=== PATIENT | male | born 1940 | race African-American/Black ===

== ENCOUNTER 2018-03-10 05:05 | Inpatient (IN) ==
[2018-03-13 11:18] VITALS: BP 154/73
== END 2018-03-13 11:55 | disposition swing bed (61) | DRG 470 ==
LOC: N.OR 05:05 → N.SDSINP 05:11 → N.3E 07:10
PROVIDERS: ADMIT Orthopaedic Surgery; ATTEND Orthopaedic Surgery

== ENCOUNTER 2018-06-10 05:32 | Inpatient (IN) ==
[2018-06-10] MEDS ORDERED: VANCOMYCIN INJ 1,000 MG in SODIUM CHLORIDE 0.9% 250 ML IV ONE (06:00)
[2018-06-10] MEDS ORDERED: ceFAZolin 1,000 MG in SYRINGE 1 EACH IV ONE (06:00)
[2018-06-10] MEDS ORDERED: ALBUTEROL/IPRATROPIUM 3 ML NEB RESP TX ONE (06:54)
[2018-06-10] MEDS ORDERED: DIAZEPAM 5 MG TABLET PO ONE (06:54)
[2018-06-10] MEDS ORDERED: FAMOTIDINE 20 MG TABLET PO ONE (06:54)
[2018-06-10] MEDS ORDERED: ROPIVACAINE 0.5% 30 ML VIAL ONE (06:58)
[2018-06-10] MEDS ORDERED: VANCOMYCIN 1,000 MG VIAL ONE ×2 (07:11→07:20)
[2018-06-10] MEDS ORDERED: ceFAZolin 1,000 MG VIAL ONE (07:11)
[2018-06-10] MEDS ORDERED: FAMOTIDINE 20 MG TABLET ONE (07:12)
[2018-06-10] MEDS ORDERED: DIAZEPAM 5 MG TABLET ONE (07:12)
[2018-06-10] MEDS ORDERED: MORPHINE 4 MG/1 ML VIAL IV PRN (07:16)
[2018-06-10] MEDS ORDERED: diphenhydrAMINE CAP 25 MG CAPSULE PO PRN (07:16)
[2018-06-10] MEDS ORDERED: ONDANSETRON 4 MG/2 ML VIAL IV PRN (07:16)
[2018-06-10] MEDS ORDERED: NALOXONE 0.4 MG/ML VIAL IV PRN (07:16)
[2018-06-10] MEDS ORDERED: BISACODYL 10 MG SUPP RECTAL PRN (07:16)
[2018-06-10] MEDS ORDERED: LACTULOSE 20 GM/30 ML UDCUP PO PRN (07:16)
[2018-06-10] MEDS ORDERED: TEMAZEPAM 7.5 MG CAPSULE PO PRN (07:16)
[2018-06-10] MEDS ORDERED: PROMETHAZINE 25 MG/1 ML VIAL IM PRN (07:16)
[2018-06-10] MEDS ORDERED: BUPIVACAINE SPINAL 0.75% 2 ML AMP SPINAL ONE (10:33)
[2018-06-10] MEDS ORDERED: PROPOFOL 200 MG/20 ML VIAL IV ONE (10:33)
[2018-06-10] MEDS ORDERED: fentaNYL 100 MCG/2 ML VIAL ONE (10:33)
[2018-06-10] MEDS ORDERED: PHENYLEPHRINE 1 MG/10 ML SYRINGE IV ONE (10:34)
[2018-06-10] MEDS ORDERED: MIDAZOLAM 2 MG/2 ML VIAL ONE (10:34)
[2018-06-10] MEDS ORDERED: ACETAMINOPHEN 1,000 MG/100 ML VIAL IV ONE (10:34)
[2018-06-10] MEDS ORDERED: PROPOFOL 500 MG/50 ML BOTTLE IV ONE (10:34)
[2018-06-10] MEDS ORDERED: ONDANSETRON 4 MG/2 ML VIAL ONE (10:34)
[2018-06-10] MEDS ORDERED: TRANEXAMIC ACID 1,000 MG/10 ML VIAL ONE (10:34)
[2018-06-10] MEDS ORDERED: SODIUM CHLORIDE 0.9% 100 ML IV ONE (10:35)
[2018-06-10] MEDS: MORPHINE PCA 30 MG/30 ML SYRINGE IV SCH (11:03)
[2018-06-10] MEDS ORDERED: MORPHINE 10 MG/1 ML VIAL IV PRN (11:19)
[2018-06-10 12:50] LABS: Basophils % 0.2 % (0.0-0.8); Eosinophils # 0.1 10*3/uL (0.0-0.87); Eosinophils % 2.7 % (0.00-10.9); Hematocrit 39.1 VOL% (42.0-52.0); Hemoglobin 11.8 GM/DL (14.0-18.0); Immature Granulocytes % 0.4 %; Immature Granulocytes Absolute 0.02 #; Mean Corpuscular HGB Conc 30.2 GM/DL (32-36); Mean Corpuscular Hemoglobin 27 PG (27-34); Mean Corpuscular Volume 90.9 FL (87-102); Mean Platelet Volume 9.9 FL (9.6-12.0); Monocytes # 0.4 10*3/uL (0.11-0.8); Monocytes % 7.8 % (1.7-12.7); Neutrophils # 3.4 10*3/uL (1.4-7.4); Neutrophils % 68.9 % (38.7-73.9); Platelet Count 147 T/CUMM (130-400); White Blood Count 4.9 T/CUMM (4-12)
[2018-06-10] MEDS: ceFAZolin 1,000 MG in SYRINGE 1 EACH IV SCH ×2 (13:11→21:02)
[2018-06-10 13:16] LABS: Eosinophils 2 % (0-10); Lymphocytes 20 % (20-55); Segmented Neutrophils 69 % (50-85); Total Cells Counted 100
[2018-06-10 13:19] LABS: Anisocytosis Slight
[2018-06-10 13:20] LABS: Calcium 8.9 MG/DL (8.5-10.1); Hypochromasia Slight; Osmolality,Calculated 283.1 MOS/KG (273-304); Potassium 3.9 MMOL/L (3.5-5.1)
[2018-06-10 13:21] LABS: Platelet Estimate Normal
[2018-06-10] MEDS: DOCUSATE SODIUM 100 MG CAPSULE PO SCH ×2 (13:26→20:55)
[2018-06-10] MEDS: hydroCHLOROthiazide 12.5 MG CAPSULE PO SCH (13:26)
[2018-06-10] MEDS: TAMSULOSIN 0.4 MG CAPSULE PO SCH (13:26)
[2018-06-10] MEDS: PANTOPRAZOLE 40 MG TABLET PO SCH (13:26)
[2018-06-10] MEDS: LACTATED RINGERS 1,000 ML IV SCH ×2 (13:28→22:19)
[2018-06-11] MEDS: LACTATED RINGERS 1,000 ML IV SCH (04:32)
[2018-06-11 05:14] LABS: Basophils % 0.1 % (0.0-0.8); Eosinophils % 0.6 % (0.00-10.9); Hematocrit 36.2 VOL% (42.0-52.0); Hemoglobin 11.2 GM/DL (14.0-18.0); Immature Granulocytes % 0.4 %; Immature Granulocytes Absolute 0.03 #; Lymphocytes # 0.9 10*3/uL (1.4-4.0); Lymphocytes % 13.2 % (21.2-54.2); Mean Corpuscular HGB Conc 30.9 GM/DL (32-36); Mean Corpuscular Hemoglobin 27 PG (27-34); Mean Corpuscular Volume 86.6 FL (87-102); Mean Platelet Volume 10.3 FL (9.6-12.0); Monocytes % 14.4 % (1.7-12.7); Neutrophils % 71.3 % (38.7-73.9); Platelet Count 157 T/CUMM (130-400); Red Blood Count 4.18 MC/CUMM (3.8-5.5); Red Cell Distribution Width 14.6 % (9.3-17.3); White Blood Count 7.1 T/CUMM (4-12)
[2018-06-11 05:31] LABS: Calcium 8.8 MG/DL (8.5-10.1); Osmolality,Calculated 277.5 MOS/KG (273-304); Potassium 3.6 MMOL/L (3.5-5.1)
[2018-06-11] MEDS: DOCUSATE SODIUM 100 MG CAPSULE PO SCH ×2 (09:24→20:47)
[2018-06-11] MEDS: TAMSULOSIN 0.4 MG CAPSULE PO SCH (09:24)
[2018-06-11] MEDS: PANTOPRAZOLE 40 MG TABLET PO SCH (09:24)
[2018-06-11] MEDS: hydroCHLOROthiazide 12.5 MG CAPSULE PO SCH (09:24)
[2018-06-11] MEDS: FONDAPARINUX 2.5 MG/0.5 ML SYRINGE SUBCUT SCH (20:46)
[2018-06-11] MEDS: MORPHINE PCA 30 MG/30 ML SYRINGE IV SCH (21:59)
[2018-06-12] MEDS: LACTATED RINGERS 1,000 ML IV SCH (02:15)
[2018-06-12] MEDS: PANTOPRAZOLE 40 MG TABLET PO SCH (09:15)
[2018-06-12] MEDS: hydroCHLOROthiazide 12.5 MG CAPSULE PO SCH (09:15)
[2018-06-12] MEDS: DOCUSATE SODIUM 100 MG CAPSULE PO SCH ×2 (09:15→22:10)
[2018-06-12] MEDS: MAGNESIUM HYDROXIDE SUSP 30 ML UDCUP PO PRN ×3 (09:16→22:14)
[2018-06-12] MEDS: TAMSULOSIN 0.4 MG CAPSULE PO SCH (09:16)
[2018-06-12] MEDS: FONDAPARINUX 2.5 MG/0.5 ML SYRINGE SUBCUT SCH (22:10)
[2018-06-13] MEDS: MAGNESIUM HYDROXIDE SUSP 30 ML UDCUP PO PRN (06:21)
[2018-06-13 07:43] VITALS: BP 107/52
[2018-06-13] MEDS: TAMSULOSIN 0.4 MG CAPSULE PO SCH (09:08)
[2018-06-13] MEDS: DOCUSATE SODIUM 100 MG CAPSULE PO SCH (09:08)
[2018-06-13] MEDS: hydroCHLOROthiazide 12.5 MG CAPSULE PO SCH (09:08)
[2018-06-13] MEDS: PANTOPRAZOLE 40 MG TABLET PO SCH (09:08)
== END 2018-06-13 11:24 | disposition swing bed (61) | DRG 470 ==
LOC: N.OR 05:32 → N.SDSINP 05:32 → N.3E 11:15
PROVIDERS: ADMIT Orthopaedic Surgery; ATTEND Orthopaedic Surgery